=== PATIENT | female | born 1970 | race Caucasian/White ===

== ENCOUNTER 2017-02-07 19:46 | Inpatient (IN) | payer OTHER ==
[~2017-02-07] VITALS: Ht 172.7 cm; Wt 90.1 kg
[~2017-02-07 19:46] MED LIST: LEXA20TA PO; MONT10TA2 PO
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
[2017-02-07] MEDS ORDERED: SODIUM CHLOR 0.9% 1000 ML INJ 1,000 ML IV ONE (20:00)
[2017-02-07] MEDS ORDERED: ONDANSETRON HCL 4 MG/2 ML VIAL IV PUSH ONE (20:00)
[2017-02-07] MEDS ORDERED: MORPHINE SULFATE 8 MG/ML INJ IV PUSH ONE (20:00)
[2017-02-07 20:02] VITALS: BP 116/67; PULSE 88; RESP 16; TEMP 98.6; O2SAT 97
[2017-02-07] MEDS ORDERED: LEXA10TA PO (20:05)
[2017-02-07] MEDS ORDERED: CLAR10CA3 PO (20:05)
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
[2017-02-07] MEDS ORDERED: HYDROmorphone HCL PF 1 MG/ML VIAL IV PUSH ONE (21:45)
[2017-02-07] MEDS ORDERED: ONDANSETRON HCL 4 MG/2 ML VIAL IV PUSH PRN (21:45)
[2017-02-07] MEDS ORDERED: SODIUM CHLORIDE FLUSH PRN IV FLUSH (21:45)
[2017-02-07 21:51] LABS: AUTOMATED NEUTROPHIL # 6.4 TH/MM3 (1.8-7.7); BASOPHIL % 0.4 % (0.0-2.0); EOSINOPHIL # 0.2 TH/MM3 (0-0.4); EOSINOPHIL % 1.8 % (0.0-4.0); HEMATOCRIT 38.2 % (35.0-46.0); HEMO FLAGS DIFF FINAL; LYMPH % 29.3 % (9.0-44.0); MEAN CELL VOLUME 89.6 FL (80.0-100.0); MEAN CORPUSCULAR HEMOGLOBIN 30.9 PG (27.0-34.0); MEAN CORPUSCULAR HGB CONC 34.5 % (32.0-36.0); MONO % 6.3 % (0.0-8.0); NEUT % 62.2 % (16.0-70.0); PLATELET COUNT 254 TH/MM3 (150-450); RED BLOOD COUNT 4.26 MIL/MM3 (4.00-5.30); RED CELL DISTRIBUTION WIDTH 12.9 % (11.6-17.2); WHITE BLOOD COUNT 10.2 TH/MM3 (4.0-11.0)
[2017-02-07 22:03] LABS: APTT (PATIENT) 27.8 SEC (24.3-30.1); PROTHROMBIN TIME - PATIENT 10.8 SEC (9.8-11.6)
[2017-02-07 22:07] LABS: BICARBONATE 22.5 MEQ/L (21.0-32.0); POTASSIUM 3.1 MEQ/L (3.5-5.1)
[2017-02-07 22:34] VITALS: BP 121/72; TEMP 98.2
[2017-02-07] MEDS: LORazepam 2 MG/ML VIAL IV PRN (23:06)
[2017-02-07] MEDS ORDERED: INSULIN HUMAN REGULAR 1,000 UNITS/10 ML VIAL SQ PRN (23:45)
[2017-02-07] MEDS ORDERED: CHLORHEXIDINE GLUCONATE 2 % 1 PACK (2 CLOTHS) TOPICAL PRN (23:45)
[2017-02-07] MEDS ORDERED: LACTATED RINGER'S 1000 ML IV PRN (23:45)
[2017-02-07] MEDS ORDERED: SODIUM CHLORID 0.9% 500 ML IV PRN (23:45)
[2017-02-07] MEDS ORDERED: POVIDONE IODINE 5% (ANTISEPSIS KIT) 4 APPLICATIONS EACH NARE PRN (23:45)
[2017-02-07 23:50] VITALS: BP 131/77; PULSE 86; RESP 19; TEMP 97; O2SAT 94
[2017-02-08] MEDS: MORPHINE SULFATE 4 MG/ML INJ IV PUSH PRN ×3 (00:26→07:28)
[2017-02-08 00:40] VITALS: BP 131/77; PULSE 86; RESP 19; TEMP 97; O2SAT 94
[2017-02-08] MEDS ORDERED: HYDROmorphone HCL PF 1 MG/ML VIAL IV ONE (04:00)
[2017-02-08 04:30] VITALS: BP 115/66; PULSE 78; RESP 19; TEMP 98.6; O2SAT 94
[2017-02-08] MEDS: ACETAMINOPHEN/HYDROcodone 325 MG/5 MG TAB PO PRN ×2 (06:18→10:12)
[2017-02-08] MEDS: ESCITALOPRAM OXALATE 10 MG TAB PO SCH (07:28)
[2017-02-08] MEDS: SODIUM CHLORIDE FLUSH BID IV FLUSH SCH ×2 (07:32→22:00)
[2017-02-08] MEDS: LORATADINE 10 MG TAB PO SCH (07:33)
[2017-02-08 08:00] VITALS: BP 137/70; PULSE 74; RESP 21; TEMP 97.6; O2SAT 98
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
[2017-02-08] MEDS ORDERED: HYDROmorphone HCL PF 2 MG/ML VIAL IV PUSH STA (10:25)
[2017-02-08] MEDS: NS + KCL 20 MEQ INJ 1,000 ML IV SCH ×2 (10:44→21:00)
--- NOTE | 2017-02-08 11:49 | HHI.HP ---
HPI Service [facility] Hospitalists Primary Care Physician Patrick Gutierrez DO Admission Diagnosis R foot LESFRANC FX 1-5 with tarsometatarsal subluxation Travel History International Travel<30 Days: No Contact w/Intl Traveler <30 Da: No Traveled to Known Affected Are: No Past Family Social History Allergies: Coded Allergies: Biaxin (Verified Allergy, Intermediate, HEADACHE, 02/07/17) Penicillin (Verified Allergy, Unknown, 02/07/17) childhood allergy Sulfa (Verified Allergy, Unknown, 02/07/17) childhood allergy Cipro (Verified Adverse Reaction, Intermediate, Headache, 02/07/17) Doxycycline (Verified Adverse Reaction, Intermediate, Nausea/Vomiting, ) Physical Exam Vital Signs Vital Signs Date Time Temp Pulse Resp B/P Pulse Ox O2 Delivery O2 Flow Rate FiO2 02/08/17 08:00 97.6 74 21 137/70 98 02/08/17 04:30 98.6 78 19 115/66 94 02/08/17 04:09 Nasal Cannula 3.00 02/08/17 00:30 Nasal Cannula 2.00 02/07/17 23:50 97.0 86 19 131/77 94 02/07/17 22:34 98.2 91 16 121/72 99 02/07/17 21:04 16 02/07/17 20:06 16 97 Room Air 02/07/17 20:02 98.6 88 16 116/67 97 Physical Exam GENERAL: This is a well-nourished, well-developed patient, in no apparent distress. SKIN: No rashes, ecchymoses or lesions. Cool and dry. HEAD: Atraumatic. Normocephalic. No temporal or scalp tenderness. EYES: Pupils equal round and reactive. Extraocular motions intact. No scleral icterus. No injection or drainage. ENT: Nose without bleeding, purulent drainage or septal hematoma. Throat without erythema, tonsillar hypertrophy or exudate. Uvula midline. Airway patent. NECK: Trachea midline. No JVD or lymphadenopathy. Supple, nontender, no meningeal signs. CARDIOVASCULAR: Regular rate and rhythm without murmurs, gallops, or rubs. RESPIRATORY: Clear to auscultation. Breath sounds equal bilaterally. No wheezes , rales, or rhonchi. GASTROINTESTINAL: Abdomen soft, non-tender, nondistended. No hepato-splenomegaly , or palpable masses. No guarding. MUSCULOSKELETAL: Extremities without clubbing, cyanosis, or edema. No joint tenderness, effusion, or edema noted. No calf tenderness. Negative Homans sign bilaterally. NEUROLOGICAL: Awake and alert. Cranial nerves II through XII intact. Motor and sensory grossly within normal limits. Five out of 5 muscle strength in all muscle groups. Normal speech. Laboratory Laboratory Tests Test 02/07/17 20:55 White Blood Count 10.2 Red Blood Count 4.26 Hemoglobin 13.2 Hematocrit 38.2 Mean Corpuscular Volume 89.6 Mean Corpuscular Hemoglobin 30.9 Mean Corpuscular Hemoglobin 34.5 Concent Red Cell Distribution Width 12.9 Platelet Count 254 Mean Platelet Volume 8.0 Neutrophils (%) (Auto) 62.2 Lymphocytes (%) (Auto) 29.3 Monocytes (%) (Auto) 6.3 Eosinophils (%) (Auto) 1.8 Basophils (%) (Auto) 0.4 Neutrophils # (Auto) 6.4 Lymphocytes # (Auto) 3.0 Monocytes # (Auto) 0.6 Eosinophils # (Auto) 0.2 Basophils # (Auto) 0.0 CBC Comment DIFF FINAL Differential Comment Prothrombin Time 10.8 Prothromb Time International 1.0 Ratio Activated Partial 27.8 Thromboplast Time Sodium Level 138 Potassium Level 3.1 Chloride Level 107 Carbon Dioxide Level 22.5 Anion Gap 9 Blood Urea Nitrogen 13 Creatinine 0.81 Estimat Glomerular Filtration 76 Rate Random Glucose 90 Calcium Level 8.1 Result Diagram: 02/07/17205402/07/172054 Physician Certification Order for Inpatient Services The services are ordered in accordance with Medicare regulations or non- Medicare payer requirements, as applicable. In the case of services not specified as inpatient-only, they are appropriately provided as inpatient services in accordance with the 2-midnight benchmark. days is the estimated time the patient will need to remain in the hospital, assuming treatment plan goals are met and no additional complications. Celestine Lamb MD Feb 08, 2017 11:48
[2017-02-08 12:00] VITALS: BP 111/68; PULSE 61; RESP 16; TEMP 96.9; O2SAT 97
[2017-02-08] MEDS ORDERED: PROPOFOL 200 MG/20 ML AMP IV ONE (12:41)
[2017-02-08] MEDS ORDERED: ONDANSETRON HCL 4 MG/2 ML VIAL IV PUSH ONE (12:41)
[2017-02-08] MEDS: HYDROmorphone HCL PF 1 MG/ML VIAL IV PUSH PRN ×3 (14:56→23:45)
[2017-02-08 16:00] VITALS: BP 145/75; PULSE 74; RESP 15; TEMP 98.6; O2SAT 97
[2017-02-08] MEDS ORDERED: CLINDAMYCIN PHOS 600 MG/4 ML VIAL ONE (18:08)
[2017-02-08] MEDS ORDERED: fentaNYL CITRATE 250 MCG/5 ML AMP ONE (20:09)
[2017-02-08] MEDS ORDERED: DO NOT ADM ANY ANTICOAGULANT DRUGS PRN (21:53)
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
--- NOTE | 2017-02-08 22:21 | HHI.PR ---
Immediate Post Op Note Procedure Date: Feb 08, 2017 Pre Op Diagnosis: R foot lisfranc fracture dislocation Post Op Diagnosis: Same Surgeon: Kristin Valentin DPM Billing Spec(s): Staff Procedure: ORIF medial column and open reduction with pinning of lateral column R foot lisfranc fracture/dislocation Findings: Consistent with diagnosis. Medial incision made over 1st TMT joint where it was found to be dorsally and laterally dislocated, then reduced, fixated temporarily with 0.62 K-wire. Incision made to lateral aspect 2nd met base and 2nd TMT joint reduced with medium pointed reduction clamp, followed by placement of 3.5 cannulated lag screw. Confirmed with C-arm, then 1st TMT joint fixated with 3.5 cannulated fully threaded screw to hold position. Dorsal linear incision made over 3rd TMT joint to reduce with medium pointed reduction clamp and pinned into lateral cuneiform area, followed by small incision made over 4th/5th TMT joint areas to achieve reduction while percutaneous pin placed from 4th/5th met bases to cuboid area, respectively. Reduction confirmed with C- arm. 2nd distal metatarsal head/neck fracture reduced. Short posterior splint applied after xeroform to incision/pin sites, 4x4, cling , cast padding, annamaria. NWB RLE Additional Information: 600mg IV clindamycin Complications: none Specimen(s) removed: n/a Estimated blood loss: 10mL Anesthesia: General Drains: None Tourniquet time (min at mmHg) 2 hours at 250mmHg Patient to: PACU Patient Condition: Good Implant/Devices: SEE IMPLANT LOG (if applicable) Date/Time of Procedure: SEE SURGICAL CARE RECORD Kristin Valentin DPM Feb 08, 2017 22:21
--- NOTE | 2017-02-08 22:36 | RADRPT ---
EXAM DATE/TIME: 02/08/2017 20:53 [facility] COMPARISON: No previous studies available for comparison. INDICATIONS : Open reduction right foot. MEDICAL HISTORY : None. SURGICAL HISTORY : None. ENCOUNTER: Subsequent ACUITY: 2 days PAIN SCORE: Non-responsive. LOCATION: Right lateral FINDINGS: 4 images of the mid foot and hindfoot are recorded digitally in the operating room using C-arm during placement of screws an external pins. CONCLUSION: Intraoperative images. [place] Anne MD on February 08, 2017 at 22:34 Board Certified Radiologist. This report was verified electronically.
[2017-02-08] MEDS ORDERED: MORPHINE SULFATE 4 MG/ML INJ ONE (22:40)
--- NOTE | 2017-02-08 22:59 | RADRPT ---
EXAM DATE/TIME: 02/08/2017 22:07 [facility] COMPARISON: FOOT RIGHT COMPLETE ([id number]), February 07, 2017, 20:10. INDICATIONS : Status post ORIF right foot. MEDICAL HISTORY : None. SURGICAL HISTORY : None. ENCOUNTER: Subsequent ACUITY: 1 day PAIN SCORE: Non-responsive. LOCATION: Right Foot FINDINGS: Three-view examination is performed in fiberglass splint. The 2 screws and one pin about the 1st mul tangular bone and metatarsal. There is 3 external fixation pins in the lateral mid foot. The alignment of the midfoot osseous structures is near anatomic. Angulated fracture of the distal 2 nd metatarsus similar to prior. CONCLUSION: Internal and external fixation hardware in place. Montana Anne MD on February 08, 2017 at 22:56 Board Certified Radiologist. This report was verified electronically.
[2017-02-08 23:25] VITALS: BP 126/70; PULSE 81; RESP 18; TEMP 98.9; O2SAT 94
[2017-02-09 04:29] VITALS: BP 114/63; PULSE 85; RESP 18; TEMP 98.1; O2SAT 96
[2017-02-09] MEDS: HYDROmorphone HCL PF 1 MG/ML VIAL IV PUSH PRN ×2 (04:52→12:34)
[2017-02-09] MEDS ORDERED: GABAPENTIN 300 MG CAP PO ONE (06:45)
[2017-02-09 08:00] VITALS: BP 126/56; PULSE 97; RESP 18; TEMP 97.4; O2SAT 93
[2017-02-09] MEDS ORDERED: NORC5TAB PO (08:53)
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
[2017-02-09] MEDS ORDERED: ROLLER WALKER1 MI1 (08:55)
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
[2017-02-09] MEDS: LORATADINE 10 MG TAB PO SCH (09:23)
[2017-02-09] MEDS: ESCITALOPRAM OXALATE 10 MG TAB PO SCH (09:23)
[2017-02-09] MEDS: ACETAMINOPHEN/HYDROcodone 325 MG/5 MG TAB PO PRN ×2 (09:26→14:58)
[2017-02-09] MEDS: SODIUM CHLORIDE FLUSH BID IV FLUSH SCH (09:30)
[2017-02-09 12:00] VITALS: BP 141/75; PULSE 91; RESP 18; TEMP 99; O2SAT 95
[2017-02-09] MEDS ORDERED: ACETAMINOPHEN/HYDROcodone 325 MG/5 MG TAB PO PRN (12:00)
[2017-02-09] MEDS: LORazepam 2 MG/ML VIAL IV PRN (12:09)
[2017-02-09] MEDS ORDERED: ENOX40P SQ (16:20)
--- NOTE | 2017-02-09 16:33 | PD.POD ---
Subjective Podiatric Problems POD #1 s/p ORIF R foot lisfranc fracture/dislocation, Dr Valentin Past Med/Surg/Social History Social History Smoking Status: Former Smoker Objective Vital Signs Vital Signs Date Time Temp Pulse Resp B/P Pulse Ox O2 Delivery O2 Flow Rate FiO2 02/09/17 12:00 99.0 91 18 141/75 95 02/09/17 08:00 97.4 97 18 126/56 93 02/09/17 04:29 98.1 85 18 114/63 96 02/08/17 23:25 98.9 81 18 126/70 94 02/08/17 22:50 98.7 83 14 117/56 94 Nasal Cannula 3 02/08/17 22:45 84 14 123/65 94 Nasal Cannula 3 02/08/17 22:30 83 14 126/66 94 Nasal Cannula 3 02/08/17 22:15 91 14 125/61 93 Nasal Cannula 3 02/08/17 21:52 98.3 106 10 127/88 93 4 Coded Allergies: Biaxin (Verified Allergy, Intermediate, HEADACHE, 02/07/17) Penicillin (Verified Allergy, Unknown, 02/07/17) childhood allergy Sulfa (Verified Allergy, Unknown, 02/07/17) childhood allergy Cipro (Verified Adverse Reaction, Intermediate, Headache, 02/07/17) Doxycycline (Verified Adverse Reaction, Intermediate, Nausea/Vomiting, ) Other Results Last Impressions Lower Extremity CT 02/08/17 0000 Signed Impressions: Service Date/Time: Wednesday, February 08, 2017 09:18 - CONCLUSION: Fracture dislocation as described above. 3D reconstructions are pending. 3-D reconstructions show fracture dislocation at the metatarsal tarsal joints. Guillermo Perez MD FACR Foot X-Ray 02/08/17 0000 Signed Impressions: Service Date/Time: Wednesday, February 08, 2017 22:07 - CONCLUSION: Internal and external fixation hardware in place. [place] Anne MD Pelvis X-Ray 02/07/17 0000 Signed Impressions: Service Date/Time: Tuesday, February 07, 2017 20:14 - CONCLUSION: 1. No acute findings. Bilateral tubal ligation clips. Israel Hardwick MD Chest X-Ray 02/07/17 0000 Signed Impressions: Service Date/Time: Tuesday, February 07, 2017 20:17 - CONCLUSION: No acute disease. Israel Hardwick MD Physical Exam Remarks NVI, compartments soft. Splint clean, dry, intact Assessment & Plan A/P POD #1 s/p ORIF R foot lisfranc fracture/dislocation, Dr Homero aguilar tomorrow. Rx written Follow up in clinic [place] Kristin Berry DPM Feb 09, 2017 16:33
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
== END 2017-02-09 16:25 | disposition home or self-care (01) | DRG 505 ==
LOC: NEPD 19:46 → NEDA 21:20 → N06B 22:37
PROVIDERS: ADMIT Hospitalist; ATTEND Hospitalist
PROC: 0QSNXZZ Reposition Right Metatarsal, External Approach (ICD-10-PCS; 2017-02-08)
PROC: 0SSK04Z Reposition Right Tarsometatarsal Joint with Internal Fixation Device, Open Approach (ICD-10-PCS; principal; 2017-02-08 18:39)
DX: S93.324A Dislocation of tarsometatarsal joint of right foot, initial encounter (principal); F32.9 Major depressive disorder, single episode, unspecified; S92.321A Displaced fracture of second metatarsal bone, right foot, initial encounter for closed fracture; F41.9 Anxiety disorder, unspecified; V49.49XA Driver injured in collision with other motor vehicles in traffic accident, initial encounter; Z87.891 Personal history of nicotine dependence
CPT/HCPCS: 71010; 72170; 73620; 73630; 73700; 76000; 80048; 85025; 85610; 85730; 96374; 96375; C1713; E0113; J1170; J2060; J2270; J2405; J3010; J3480; J7030

== ENCOUNTER 2017-10-22 16:40 | Emergency (ER) | payer SELFPAY ==
[~2017-10-22] VITALS: Ht 174 cm; Wt 87.3 kg
[~2017-10-22 16:40] MED LIST changes: +CLAR10CA3 PO; +ENOX40P SQ; +LEXA10TA PO; -LEXA20TA PO; -MONT10TA2 PO; +NORC5TAB PO; +ROLLER WALKER1 MI1
[2017-10-22 16:47] VITALS: BP 135/74; PULSE 87; RESP 18; TEMP 98.1; O2SAT 98
[2017-10-22] MEDS ORDERED: ALLI60CA2 PO (17:08)
[2017-10-22] MEDS ORDERED: FLUT1SPR5 EACH NARE (17:08)
[2017-10-22] MEDS ORDERED: KETOROLAC TROMETHAMINE 30 MG/ML (IVP) VIAL IV PUSH ONE (17:15)
[2017-10-22] MEDS ORDERED: SODIUM CHLOR 0.9% 1000 ML INJ 1,000 ML IV ONE (17:15)
[2017-10-22] MEDS ORDERED: ONDANSETRON HCL 4 MG/2 ML VIAL IV PUSH ONE (17:15)
[2017-10-22] MEDS ORDERED: TAMSULOSIN HCL 0.4 MG CAP PO ONE (17:15)
[2017-10-22 17:16] LABS: BILIRUBIN, URINE NEG (NEG); BLOOD, URINE MOD (NEG); GLUCOSE,URINE NEG (NEG); KETONE, URINE NEG (NEG); NITRITE,URINE NEG (NEG); URINE LEUKOCYTE ESTERASE SMALL (NEG)
[2017-10-22 17:17] LABS: URINE COLOR STRAW (YELLW/STRAW)
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
[2017-10-22 17:26] LABS: AMORPHOUS SEDIMENT, URINE FEW; BACTERIA, URINE OCC /hpf; TRICHOMONAS, URINE FEW; WBC, URINE 0-2 /hpf (0-5)
[2017-10-22] MEDS ORDERED: PROM25TA10 PO (17:50)
[2017-10-22] MEDS ORDERED: PERC5TAB12 PO (17:50)
[2017-10-22] MEDS ORDERED: MACR100C2 PO (17:50)
[2017-10-22] MEDS ORDERED: TAMS5CAP PO (17:50)
[2017-10-22 18:43] VITALS: RESP 16
[2017-10-22 18:46] VITALS: BP 112/80
== END 2017-10-22 18:48 | disposition home or self-care (01) ==
LOC: PHED 16:40
DX: N23 Unspecified renal colic (principal); N39.0 Urinary tract infection, site not specified; A59.9 Trichomoniasis, unspecified; J45.909 Unspecified asthma, uncomplicated; F41.9 Anxiety disorder, unspecified; F32.9 Major depressive disorder, single episode, unspecified; K21.9 Gastro-esophageal reflux disease without esophagitis; F17.210 Nicotine dependence, cigarettes, uncomplicated; Z87.442 Personal history of urinary calculi
CPT/HCPCS: 81001; 84703; 96361; 96374; 96375; 99284; J1885; J2405; J7030